=== PATIENT | female | born 1965 | race Caucasian/White ===

== ENCOUNTER 2017-03-06 06:43 | Day surgery (SDC) | payer OTHER ==
[~2017-03-06] VITALS: Ht 154.9 cm; Wt 59.0 kg
[~2017-03-06 06:43] MED LIST: ASPIR 8181 M1 PO; CYANOCOBALAM1000 MCG PO; PROZAC20 MG PO; VITAMIN D31000 UNI2 PO
[2017-03-06 07:05] VITALS: BP 154/76
[2017-03-06 12:22] VITALS: BP 170/80
[2017-03-06 16:15] VITALS: BP 170/80
[2017-03-06 18:09] LABS: HEMATOCRIT 41.7 % (36.0-46.0); MCH 30.7 PG (29.0-34.0); MCHC 33.6 G/DL (30.0-36.0); MCV 91.4 FL (83-99); MEAN PLAT.VOLUME 10.4 uM^3 (9.5-12.4); PLATELET COUNT 231 K/uL (156-360); RBC DIS.WIDTH-CV 11.5 % (11.8-14.6); RBC DIS.WIDTH-SD 38.6 % (39-53); RED BLOOD COUNT 4.56 M/uL (3.80-5.20); WHITE BLOOD COUNT 11.9 K/uL (4.1-10.2)
[2017-03-06 18:20] LABS: ANION GAP 8 MEQ/L (2-14); CHLORIDE 104 MEQ/L (99-109); GFR ESTIMATE (CALCULATED) > 59 mL/min/; GLUCOSE 155 mg/dL (70-99); POTASSIUM 3.9 MEQ/L (3.7-5.4); SAMPLE HEMOLYSIS CHECK 0; SAMPLE ICTERIC CHECK 0; SAMPLE LIPEMIA CHECK 0; SODIUM 138 MEQ/L (136-147); UREA NITROGEN (BUN) 10 mg/dL (9-23)
[2017-03-06 20:20] VITALS: BP 159/81
[2017-03-07 00:07] VITALS: BP 156/74
[2017-03-07 04:18] VITALS: BP 141/72
[2017-03-07 07:18] LABS: HEMATOCRIT 43.5 % (36.0-46.0); MCH 31.1 PG (29.0-34.0); MCV 91.4 FL (83-99); RBC DIS.WIDTH-CV 11.9 % (11.8-14.6); RBC DIS.WIDTH-SD 39.7 % (39-53); RED BLOOD COUNT 4.76 M/uL (3.80-5.20); WHITE BLOOD COUNT 10.7 K/uL (4.1-10.2)
[2017-03-07 07:20] VITALS: BP 172/80
[2017-03-07 07:41] LABS: ANION GAP 10 MEQ/L (2-14); CHLORIDE 104 MEQ/L (99-109); GFR ESTIMATE (CALCULATED) > 59 mL/min/; POTASSIUM 3.7 MEQ/L (3.7-5.4); SAMPLE HEMOLYSIS CHECK 0; SAMPLE ICTERIC CHECK 0; SAMPLE LIPEMIA CHECK 0; SODIUM 143 MEQ/L (136-147); UREA NITROGEN (BUN) 6 mg/dL (9-23)
[2017-03-07 07:51] LABS: HEMATOLOGY COMMENT 1 SMEAR COMPATIBLE; PLAT.SUFFICIENCY ADEQUATE; PLATELET COUNT 186 K/uL (156-360)
[2017-03-07 07:57] LABS: GLUCOSE 78 mg/dL (70-99)
[2017-03-07] MEDS ORDERED: TRAMADOL HCL50 MG PO (09:04)
[2017-03-07 10:41] VITALS: BP 161/81
== END 2017-03-07 10:54 | disposition home or self-care (01) ==
LOC: SDC 06:43 → 2SOUTH 10:20 → ENRESERV 10:37 → 2EASTP 12:14 → SDC 13:56 → 2EASTP 03-07 10:54
PROVIDERS: Obstetrics & Gynecology Gynecologic Oncology
DX: D25.1 Intramural leiomyoma of uterus (principal); N81.4 Uterovaginal prolapse, unspecified; N80.0 Endometriosis of uterus; D27.1 Benign neoplasm of left ovary; N72 Inflammatory disease of cervix uteri; N93.8 Other specified abnormal uterine and vaginal bleeding; E78.5 Hyperlipidemia, unspecified; E55.9 Vitamin D deficiency, unspecified; E53.8 Deficiency of other specified B group vitamins; Z79.82 Long term (current) use of aspirin; Z82.49 Family history of ischemic heart disease and other diseases of the circulatory system; Z88.2 Allergy status to sulfonamides
CPT/HCPCS: 80048; 85027; 88305; 88307; G0378; J0131; J0171; J0330; J0690; J1100; J1170; J1885; J2250; J2405; J2710; J3010